=== PATIENT | male | born 1980 | race Caucasian/White ===

== ENCOUNTER → 2017-08-03 | Outpatient (CLI) | payer BC ==
[~2017-08-03] MED LIST: FLEXERIL PO; HYDROCODONE-AP1 EAC6 PO; MOBIC7.5 MG PO; PREDNISONE 20 M20 MG PO
== END ==
LOC: M.MRI 07:04
DX: M47.897 Other spondylosis, lumbosacral region (principal)

== ENCOUNTER → 2017-08-12 | Outpatient (CLI) | payer BC ==
--- NOTE | 2017-08-17 07:00 | PAINCON ---
[facility] [address] [place] [address] PAIN MANAGEMENT CONSULTATION Name: OZ MEDINA Room: [facility]#: [id number] Admission: 08/12/17 Attend Phys: Juan Jerome Discharge: Date of : 80 Report #: [id number] THIS REPORT FOR: //name// CC: Darrell Trivedi PAIN CLINIC CONSULTATION HISTORY OF PRESENT ILLNESS: The patient is a pleasant 37-year-old gentleman seen in consultation at the request of Dr. Garcia for evaluation of pain, right low back, radiating into the gluteus lila and down the leg. He has episodic lancinating pain with ambulation. He notes pain is exacerbated with standing for a prolonged period of time. He has been off work for the past 3 weeks due to pain. He did get a prescription for prednisone p.o. from the ER, with some relief. Describes ongoing shooting, sharp, stabbing pain. He rates it anywhere from 3-7 on a visual analog scale. REVIEW OF SYSTEMS: Complete review of systems attached to the chart and gone over with the patient. He is single. He smokes 1 pack a day, which he has for 17 years. He does not drink alcohol to excess. He has enjoyed remarkably good health. He does work as a used car make ready worker. He has been on FMLA for the past 9 days. Pain impact score is 19/70. PHYSICAL EXAMINATION: VITAL SIGNS: Reveals a 6 feet tall, 180-pound gentleman, BMI is 24.8 kilograms per meter squared. Blood pressure 114/70, pulse 64 and respirations 16. NEUROLOGIC: Cranial nerves 2-12 are grossly intact. Pupils are equal and reactive to light and accommodation. Extraocular muscles are intact. There is no nystagmus or lateral gaze deviation. Cervical range of motion is full. Thyroid unremarkable. Upper extremity strength is generally preserved. HEART: Regular rhythmical without murmur. LUNGS: Clear to auscultation. ABDOMEN: Benign. MUSCULOSKELETAL: Rises from the chair using armrest. He has a modestly antalgic gait, difficulty walking on the right heel. Lumbar flexion is limited to 80 degrees. Slight decreased right hip flexion, lower extremity extension, dorsiflexion strength about 4/5; left is 5/5. Patellar reflexes absent on the right, 1/4 in the left. Straight leg raise at 30 degrees on the right. SKIN AND INTEGUMENT: Intact. DIAGNOSTIC STUDIES: Include MRI of the lumbar spine from 08/03/2017, noting L5-S1 to have [id number] bilateral facet arthrosis and moderate facet DJD at L4-L5. ASSESSMENT: 1. Symptomatic lumbar radiculopathy by clinical exam and history, [place] [address] PAIN MANAGEMENT CONSULTATION Name: OZ MEDINA Room: [facility]#: [id number] Admission: 08/12/17 Attend Phys: Juan Jerome Discharge: Date of : 80 Report #: [id number] L5 radicular pattern. 2. Component of lumbar spondylosis. RECOMMENDATIONS: 1. Meloxicam 7.5 b.i.d. 2. He will seek authorization for epidural injection under fluoroscopy at L5-S1. Follow up next week for interventional therapy. Thank you for allowing me to participate in the patient's care. I will keep you abreast of his progress. <ELECTRONICALLY SIGNED> By: Ryley Trivedi DO 08/17/17 0700 [id number] Centerlewis Trivedi DO /nt
== END ==
LOC: M.PC 01:22
DX: M47.26 Other spondylosis with radiculopathy, lumbar region (principal)

== ENCOUNTER → 2017-08-19 | Outpatient (CLI) | payer BC ==
--- NOTE | 2017-08-21 09:51 | PAINCON ---
[facility] [address] [place] [address] PAIN MANAGEMENT CONSULTATION Name: OZ MEDINA Room: [facility]#: [id number] Admission: 08/19/17 Attend Phys: Juan Jerome Discharge: Date of : 80 Report #: [id number] THIS REPORT FOR: //name// CC: Darrell Trivedi DATE OF SERVICE: 08/19/2017 The patient is a 37-year-old gentleman seen in consultation 08/12/2017, diagnosed with symptomatic lumbar radiculopathy with component of lumbar spondylosis. We had elected to proceed with epidural injection under fluoroscopy today. He presents to the pain clinic for said injection. Rates his pain a 2-3 on VAS, exacerbated with activity. PHYSICAL EXAMINATION: Otherwise unchanged, 6-foot tall, 185-pound gentleman, BMI is 25 kilograms per meter squared. Blood pressure 134/60, pulse 65, respirations 18. Gait is generally tandem though he favors the right leg. Lumbar flexion is limited to 80 degrees. Slight decreased left hip flexion strength. Straight leg raise is positive at 30 degrees in the right. We reviewed the MRI from 08/03/2017 noting L5-S1 to have moderate to severe bilateral facet arthrosis and moderate facet DJD at L4-L5. We elected to proceed with epidural injection under fluoroscopy today. The patient stated he was "a needle phobic." Assured the patient that we would use local anesthetic and progress slowly. The patient was taken to fluoroscopy suite, was placed in the prone position. When I went to position the C-arm over the patient, he stated he became quite anxious and agitated. I asked if he was having increasing pain, he said he was simply anxious about the procedure. I assured him the procedure was entirely an elective procedure. I told him we would be happy to abort the procedure. Continue simply with current therapy including nonsteroidal anti-inflammatory agent. I will tentatively make an appointment to see him next week. If he so desires, we will move forward with lumbar epidural injection under fluoroscopy. If, however, he chooses to continue with conservative therapy that certainly is a reasonable option. I took the patient to the recovery room. He sat down. He appeared alert and oriented. He left in the company of his . We will tentatively plan to see him next week. Discharged in good and stable condition. <ELECTRONICALLY SIGNED> By: Ryley Trivedi DO 08/21/17 0951 [id number] Trivedi DO /nt
== END ==
LOC: M.PC 02:33
DX: M47.26 Other spondylosis with radiculopathy, lumbar region (principal)

== ENCOUNTER → 2019-06-21 | Outpatient (CLI) | payer BC | LOC: M.RAD 09:41 | DX: M54.2 Cervicalgia (principal) ==